=== PATIENT | male | born 2000 | race Two or more races ===

== ENCOUNTER 2023-05-28 01:55 | Emergency (ER) | payer SELFPAY ==
[~2023-05-28] VITALS: Ht 172.7 cm; Wt 70.0 kg
[2023-05-28 01:58] VITALS: BP 113/59; PULSE 77; RESP 16; TEMP 98.4; O2SAT 98
[2023-05-28 02:28] LABS: BASOPHILS % 0.5 % (0.0-2.0); EOSINOPHILS % 0.9 % (0.0-5.0); HEMATOCRIT. 43.7 % (42.0-52.0); HEMOGLOBIN. 14.8 g/dL (14.0-18.0); LYMPHOCYTES % 13.3 % (20.0-50.0); MEAN CORPUSCULAR HEMOGLOBIN 30.2 pg (28.0-32.0); MEAN CORPUSCULAR HGB CONC 33.8 g/dL (31.0-37.0); MEAN CORPUSCULAR VOLUME 89.6 fL (80.0-94.0); MONOCYTES % 2.5 % (2.0-8.0); NEUTROPHILS % 82.8 % (40.0-76.0); PLATELET 192 x1000/uL (130-400); RED BLOOD CELL COUNT 4.88 mill/uL (4.7-6.1); RED CELL DISTRIBUTION WIDTH 13.2 % (11.6-14.6)
[2023-05-28 02:50] LABS: ALANINE AMINOTRANSFERASE 11 IU/L (10-49); ALBUMIN 4.5 g/dL (3.2-4.8); ASPARTATE AMINOTRANSFERASE 19 IU/L (<34); BILIRUBIN TOTAL 0.5 mg/dL (0.1-1.0); CALCIUM 9.5 mg/dL (8.7-10.4); CARBON DIOXIDE 22 mEq/L (21-32); CHLORIDE 108 mEq/L (98-107); CREATININE 0.8 mg/dL (0.6-1.3); ETHANOL BLOOD 258 mg/dL (<10); GLUCOSE 117 mg/dL (70-105); POTASSIUM 3.5 mEq/L (3.5-5.1); PROTEIN TOTAL 7.2 g/dL (6.0-8.3); SODIUM 145 mEq/L (136-145); UREA NITROGEN BLOOD 5 mg/dL (9-23)
== END 2023-05-28 05:26 | disposition home or self-care (01) ==
LOC: ER 01:55
DX: F10.129 Alcohol abuse with intoxication, unspecified (principal); Y90.8 Blood alcohol level of 240 mg/100 ml or more
CPT/HCPCS: 36415; 80053; 80320; 85025; 99283; G0480